=== PATIENT | male | born 1945 ===

== ENCOUNTER 2019-01-08 11:40 | Outpatient (CLI) | payer OTHER ==
[~2019-01-08] VITALS: Ht 157.5 cm; Wt 50.8 kg
[2019-01-08] MEDS ORDERED: PEPCID40 MG PO (13:02)
[2019-01-08] MEDS ORDERED: CLARITIN10 MG PO (13:02)
== END 2019-01-08 15:12 | disposition home or self-care (01) ==
LOC: OFIC 805 11:40
DX: J31.0 Chronic rhinitis (principal); R05 Cough; K21.9 Gastro-esophageal reflux disease without esophagitis; J37.0 Chronic laryngitis